=== PATIENT | male | born 1985 | race Caucasian/White ===

== ENCOUNTER 2022-04-13 09:04 | Emergency (ER) | payer OTHER, BC, SELFPAY ==
[2022-04-13 09:24] VITALS: BP 126/86; PULSE 75; RESP 18; TEMP 36.3; O2SAT 96; BMI 23.0
--- NOTE | 2022-04-13 10:05 | CRLHL7_ITS ---
For Patients: As a result of the Century Cures Act, medical imaging exams and procedure reports are released immediately into your electronic medical record. You may view this report before your referring provider. If you have questions, please contact your health care provider. Indication: Abscess Technique: Volumetric multidetector CT images of the orbital and facial soft tissues were obtained after the administration of low osmolar intravenous contrast. 78 cc Isovue 370 low osmolar intravenous contrast Comparison: None available. Findings: The partially visualized brain parenchyma is normal in attenuation without evidence of abnormal enhancement. The globes and extra-ocular muscles are unremarkable. There is no significant periorbital soft tissue swelling. The retrobulbar fat is unremarkable without evidence of inflammatory change or fluid collection. There is extensive polypoid mucosal thickening within the left maxillary sinus with additional mucosal thickening seen in the ethmoid air cells. The mastoid air cells are clear. The nasopharynx is unremarkable. The fossae of Rosenmuller are clear. There is mild superficial soft tissue swelling of the left greater than right perimandibular soft tissues. Beam hardening artifact somewhat limits evaluation of the oropharynx. Postoperative changes of the right anterior lyndsey mandible are appreciated status post plate and screw fixation with demonstration of a fixation screw within the apical root of a right mandibular incisor with mild hardware loosening (series 2, image 24). No other hardware failure is seen. There are reactive appearing right greater than left cervical lymph nodes. The facial osseus structures are grossly intact without acute osseus abnormality. Impression: 1. Demonstration of postoperative change of the right lyndsey mandible status post internal fixation with superior and lower fixation plates and screws. There is demonstration of hardware loosening adjacent to a fixation screw seen within the apical root of a right lateral mid fibular incisor (series 2, image 24). No obvious fluid collection. Please note that all CT scans at this facility use dose modulation, iterative reconstruction, and/or weight-based dosing when appropriate to reduce radiation dose to as low as reasonably achievable. Dictated by Rome Cheney MD @ 04/13/2022 1:37:33 PM (Electronically Signed)
--- NOTE | 2022-04-13 10:08 | ED_ITS ---
HPI - Dental/Oral General Time Seen by Provider: 09:45 Date Seen: 04/13/22 Chief complaint: Dental/Oral/Mouth Injury/Pain Stated complaint: Infection in upper left mouth Time Seen by Provider: 04/13/22 09:54 Source: patient, RN notes reviewed and old records reviewed Mode of arrival: ambulatory Limitations: no limitations History of Present Illness HPI Narrative: Jason is a 37 year old male with hitory of PTSD, titanium plates in his jaw who comes to the emergency room for pain and swelling on the top of his mouth. He notes that the swelling has been present for approximately a week, but markedly worsened today. It is not associated with a fever, but he does not feel well and states that his stomach also hurts. He thinks this is because of some drainage into the back of his throat. He states that this has happened before. Last encounter at [facility] was in January for sinusitis. Teeth map: 1. 2. Onset (ago): day(s) Duration: constant Severity: severe Relieving factors: nothing Exacerbating factors: nothing Context: history of dental caries and trauma (mechanism) (Facial trauma with titanium plates.) Treatment prior to arrival: none Related Data Home Medications Medication Instructions Recorded Confirmed cannibus 04/13/22 Previous Rx's Medication Instructions Recorded clindamycin HCl 300 mg capsule 300 mg PO TID #15 cap 04/13/22 Allergies Allergy/AdvReac Type Severity Reaction Status Date / Time Sulfa (Sulfonamide Allergy Verified 04/13/22 09:20 Antibiotics) Review of Systems Status of ROS: Reports: 10 or more systems reviewed and unremarkable except as noted in History and below Const: Reports: chills; Denies: fever Eyes: Denies: change in vision ENMT: Denies: throat pain, difficulty swallowing or hoarseness Cardio: Denies: chest pain or shortness of breath with exertion Resp: Denies: shortness of breath GI: Reports: abdominal pain (Epigastric and right upper quadrant.) and nausea; Denies: vomiting, diarrhea, constipation or difficulty swallowing : Denies: painful urination Musculo: Denies: back pain Integ/Breast: Denies: skin pain Psych: Reports: other (PTSD) PFSH PFSH Social History Smoking Status: Former smoker Do you use any of these nicotine containing products: None Second hand tobacco smoke exposure: No How often do you have a drink containing alcohol: never AUDIT-C Alcohol total score: 0 Non-prescribed substance use: marijuana (any form) service: No Exam Const: Vital Signs, click to edit/add: Vital Signs - 24 hr 04/13/22 09:24 04/13/22 10:43 Temperature 97.3 F L Pulse Rate [Pulse Oximeter] 75 66 Respiratory Rate 18 16 Blood Pressure [Le ft Upper Arm] 126/86 125/71 Pulse Oximetry 96 97 Documenting provider has reviewed patient's vital signs: yes Common normals: oriented x3 General appearance: cooperative and disheveled Other: Fatigued but nontoxic in appearance. HENMT: Common normals: normocephalic, head/scalp atraumatic and external ears normal Head and scalp: normocephalic and atraumatic External ear: external ears normal Other: Poor dentition in mouth. There is an area measuring approximately 3 cm located on the left hard palate with central 4 mm pustule. No drainage at this time. Dentition in poor repair. Eye: Common normals: PERRL General eye: normal appearance of both eyes Pupil: PERRL Neck & C-Spine: Common normals: full ROM, no lymphadenopathy and supple Lymph: Lymphatic: no lymphadenopathy noted Resp: Common normals: normal respiratory effort and clear to auscultation bilaterally Auscultation: clear to auscultation bilaterally Cardio: Common normals: regular rate and regular rhythm Rate: regular rate Rhythm: regular rhythm GI: Common normals: soft to palpation Palpation: soft and tender (Mild right upper quadrant.) Details: RUQ Back & Pelvis: Common normals: no thoracic nor lumbar tenderness Extremity: Common normals: full ROM Neuro: Common normals: oriented x3 Pupil exam: Normal pupillary reactivity/response: bilateral Course Reevaluation(s) Reevaluation #1: At this time differential diagnosis includes but is not limited to dental in fection, abscess, tumor, infection of underlying titanium plates. Will place an IV and patient will receive morphine 4 mg, Zofran IV mg and 1 L of normal saline. In addition will have patient undergo CT with IV contrast of the oral cavity. Will also check CBC, CRP, comprehensive panel, lipase. Patient has abdominal pain but no red flag signs. Will continue to monitor. Reevaluation #2: Patient noted to be feeling better after medications. The central lesion on top of the swelling has now decompressed. No obvious drainage. Patient is now also noted to have mild left cheek non erythematous edema. Fortunately CT shows no evidence of abscess however challenging to read the CT due to artifact from titanium plates. Consultations Consultation #1: I had the pleasure of speaking with organizational research consultant Dr. Mt Benjamin in regards to this patient. At this time will obtain viral culture and bacterial acid-fast culture from the lesion that has now decompressed. Place patient on clindamycin 300 mg t.i.d.. Patient will need to follow up with a dentist as this may be too th related. Wave patient will also follow-up with Dr. Mt Benjamin, ENT. We also did add an RPR to patient's blood work although he denies any recent sexual activity. Vital Signs Vital signs: Initial Vital Signs Temperature 97.3 F L 04/13/22 09:24 Temperature Source Temporal Artery Scan 04/13/22 09:24 Pulse Rate 75 04/13/22 09:24 Pulse Rhythm 04/13/22 09:24 Respiratory Rate 18 04/13/22 09:24 Blood Pressure 126/86 04/13/22 09:24 Blood Pressure Mean 99 04/13/22 09:24 Pulse Oximetry 96 04/13/22 09:24 Oxygen Delivery Method 04/13/22 09:24 Vital Signs Temperature 97.3 F L 04/13/22 09:24 Pulse Rate 75 04/13/22 09:24 Respiratory Rate 18 04/13/22 09:24 Blood Pressure 126/86 04/13/22 09:24 Pulse Oximetry 96 04/13/22 09:24 Temperature 97.3 F L 04/13/22 09:24 Pulse Rate 66 04/13/22 10:43 Respiratory Rate 16 04/13/22 10:43 Blood Pressure 125/71 04/13/22 10:43 Pulse Oximetry 97 04/13/22 10:43 MDM - Dental/Oral MDM Narrative Medical decision making narrative: 1. Oral infection-at this time patient has swelling over the hard palate on the left with a central lesion that has now decompressed and is not draining. Cultures were accomplished and RPR was added to labs today. White count is reassuring as is a CRP. 2. Abdominal discomfort-this is improved. Patient has a mild elevation of AST to 106 an ALT of 56. White count is normal at this time. Patient should return for worsening symptoms and as needed. Medical Records Attestation: I reviewed the patient's medical records. Lab Data Attestation: I reviewed the patient's lab results. Labs: Lab Results 04/13/22 04/13/22 04/13/22 Range/Units 10:40 10:43 Unknown WBC 5.86 (4.50-11.00) K/uL RBC 4.90 (4.30-5.90) m/uL Hgb 14.5 (13.5-17.5) gm/dL Hct 41.9 (37.0-53.0) % MCV 86 (80-100) fL MCH 30 (26-34) pg MCHC 35 (32-36) gm/dL RDW Coeff of Ama 12.6 (11.5-15.5) % Plt Count 174 (140-440) K/uL Neut % (Auto) 53.1 (42.0-72.0) % Lymph % (Auto) 23.9 (20-44) % Burleigh % (Auto) 20.6 H (0.0-11.0) % Eos % (Auto) 1.9 (0.0-7.0) % Baso % (Auto) 0.3 (0.0-3.0) % Neut # (Auto) 3.11 (1.7-7.0) K/uL Lymph # (Auto) 1.40 (0.90-2.90) K/uL Burleigh # (Auto) 1.20 H (0.00-0.90) K/UL Eos # (Auto) 0.11 (0.00-0.50) K/uL Baso # (Auto) 0.02 (0.00-0.30) K/uL Abs Immat Gran (auto) 0.01 (0.00-0.30) K/uL Sodium 135 (135-149) mmol/L Potassium 3.9 (3.6-5.1) mmol/L Chloride 100 (96-114) mmol/L Carbon Dioxide 26 (20-32) mmol/L BUN 19 (5-24) mg/dL Creatinine 0.8 (0.5-1.5) mg/dL Estimated Creat Clear 125.20 Estimated GFR 116 ml/min Glucose 99 (60-115) mg/dL Calcium 9.0 (8.4-10.6) mg/dL Total Bilirubin 0.6 (0.1-1.5) mg/dL AST 106 H (12-35) U/L ALT 56 H (4-50) U/L Alkaline Phosphatase 75 (40-150) U/L C-Reactive Protein 0.5 (0.5-1.0) mg/dL Total Protein 6.9 (6.0-8.3) g/dL Albumin 4.4 (3.3-5.0) g/dL Lipase 124 (23-300) U/L POC Creatinine 0.7 (0.6-1.3) mg/dl Imaging Data Facial CT: Attestation: I have reviewed the pertinent imaging results. Radiologist's impression: No evidence of abscess. Postoperative change of the right lyndsey mandible status post internal fixation of plates and screws. No obvious fluid collection. Discharge Plan Discharge Clinical Impression: Hard palate ulcer Patient Disposition: Home, Self-Care Condition: Improved Additional Instructions: Follow-up with dentist for check of teeth. We will also have you see ENT. Start antibiotic today-sent to [facility]. Please hand carry prescription for [place] with you. For pain ibuprofen 600 mg every 8 hours. Push clear fluids. You may use [place] sparingly for pain not relieved by ibuprofen. Return to the emergency room for worsening symptoms especially fever, vomiting, increased facial swelling. Prescriptions: New clindamycin HCl 300 mg capsule 300 mg PO TID Qty: 15 0RF No Action cannibus 0RF Follow Up/Referrals: Provider,Not a Local [Primary Care Provider] - Stand Alone Forms: [email or web address] Info Instructions
[2022-04-13] MEDS: MORPHINE 4 MG/ML INJ IVP (10:38)
[2022-04-13] MEDS: 0.9 % SODIUM CHLORIDE 1000 ml 1,000 ML IV (10:39)
[2022-04-13] MEDS: ONDANSETRON 2 MG/ML inj 4 MG IVP (10:39)
[2022-04-13 10:43] VITALS: BP 125/71; PULSE 66; RESP 16; O2SAT 97
[2022-04-13 10:48] LABS: Carbon Dioxide* 26 mmol/L (20-32); Chloride* 100 mmol/L (96-114); Glucose* 99 mg/dL (60-115); Potassium* 3.9 mmol/L (3.6-5.1); Sodium* 135 mmol/L (135-149)
[2022-04-13 10:49] LABS: Basophils Absolute Auto 0.02 K/uL (0.00-0.30); Basophils Percent Auto 0.3 % (0.0-3.0); Eosinophils Absolute Auto 0.11 K/uL (0.00-0.50); Eosinophils Percent Auto 1.9 % (0.0-7.0); Hematocrit 41.9 % (37.0-53.0); Hemoglobin* 14.5 gm/dL (13.5-17.5); Immature Granulocytes Abs Auto 0.01 K/uL (0.00-0.30); Lymphocytes Percent Auto 23.9 % (20-44); Mean Corpuscular HGB Conc 35 gm/dL (32-36); Mean Corpuscular Hemoglobin 30 pg (26-34); Mean Corpuscular Volume 86 fL (80-100); Monocytes Percent Auto 20.6 % (0.0-11.0); Neutrophils Absolute Auto 3.11 K/uL (1.7-7.0); Neutrophils Percent Auto 53.1 % (42.0-72.0); Platelet Count* 174 K/uL (140-440); RDW Coefficient of Variation % 12.6 % (11.5-15.5); White Blood Count* 5.86 K/uL (4.50-11.00)
[2022-04-13 11:02] LABS: Slide Review Reflex No
[2022-04-13 12:01] LABS: Creatinine, Point-of-Care* 0.7 mg/dl (0.6-1.3)
[2022-04-13 12:37] LABS: Albumin* 4.4 g/dL (3.3-5.0)
[2022-04-13 12:40] LABS: Alkaline Phosphatase* 75 U/L (40-150); Aspartate Amino Transferase* 106 U/L (12-35); Bilirubin Total* 0.6 mg/dL (0.1-1.5); Blood Urea Nitrogen* 19 mg/dL (5-24); Creatinine* 0.8 mg/dL (0.5-1.5); Estimated Glomerular Filt Rate 116 ml/min; Total Protein* 6.9 g/dL (6.0-8.3)
[2022-04-13 12:41] LABS: Alanine Aminotransferase* 56 U/L (4-50); Lipase* 124 U/L (23-300)
[2022-04-13 13:17] LABS: C Reactive Protein* 0.5 mg/dL (0.5-1.0)
--- NOTE | 2022-04-14 09:45 | ED.NURSE ---
chart accessed for phone call from Lab at [facility] [employer] [facility] regarding [employer] test source
[2022-04-16 03:44] LABS: Rapid Plasma Reagin (RPR) Non Reactive (Non Reactive)
== END 2022-04-13 14:34 | disposition home or self-care (01) ==
PROVIDERS: Emergency Provider Family Medicine
DX: K13.79 Other lesions of oral mucosa (principal); R10.9 Unspecified abdominal pain
CPT/HCPCS: 36415; 70487; 80053; 82565; 83690; 85025; 86140; 86592; 87070; 87116; 87276; 96374; 96375; 99284; J2270; J2405; J7030; Q9967